=== PATIENT | male | born 1985 | race Caucasian/White ===

== ENCOUNTER 2023-06-20 01:12 | Emergency (ER) | payer OTHER, SELFPAY ==
[2023-06-20 01:21] VITALS: BP 122/97; PULSE 89; RESP 18; TEMP 36.7; O2SAT 99; BMI 22.7
--- NOTE | 2023-06-20 01:26 | ED_ITS ---
HPI - General Adult General Time Seen by Provider: 01:26 Date Seen: 06/20/23 Chief complaint: Skin/Abscess/Foreign Body Stated complaint: glass cuts on torso Time Seen by Provider: 06/20/23 01:15 Source: patient and RN notes reviewed Mode of arrival: ambulatory Limitations: no limitations History of Present Illness HPI narrative: This 37-year-old male is coming in with concern of cuts from glass. He was moving a piece of glass, it shattered, there was really no indication for this. This piece of glass reportedly went all over the room when it shattered. He sustained a cut just below his right ear, superficial 1 on his neck multiple superficial ones on his arms, 1 on the dorsum of his right hand that might be a bit deeper. They have all stopped bleeding. He has no idea when his last tetanus was. We did look this up in the last listed tetanus is 10/07/1998. He does agree to have his tetanus updated. He did fine 1 piece of glass in his mouth. They are wondering about having a note to be off work for the next couple of days for him. Related Data Home Medications Medication Instructions Recorded Confirmed No Known Home Medications 06/20/23 06/20/23 Allergies Allergy/AdvReac Type Severity Reaction Status Date / Time No Known Drug Allergies Allergy Verified 06/20/23 01:24 Review of Systems Narrative: As per HPI. PFSH PFS Social History Smoking Status: Never smoker How often do you have a drink containing alcohol: never AUDIT-C Alcohol total score: 0 Non-prescribed substance use: denies use Exam Const: Vital Signs, click to edit/add: Vital Signs - 24 hr 06/20/23 01:21 Temperature 98.1 F Pulse Rate [Pulse Oximeter] 89 Respiratory Rate 18 Blood Pressure [Ri ght Upper Arm] 122/97 H Pulse Oximetry 99 Oxygen Delivery Me thod Room Air This 37-year-old male is alert, interactive, ambulatory into the ED of his own accord. His face is atraumatic. Oropharynx with normal mucosa, no traumatic change, see no cuts or wounds, no bleeding. He has a very minute superficial area on the anterior of his neck where he looks like a piece of glass scratched him. He has multiple scratch lorenzo on his left arm. He has a about 4-5 mm cut on the dorsum in the center of his right hand. Wound edges are a bit gaping. The wood below his left ear is about 5 mm, again wound edges open up and it is just into the subcutaneous tissue, starts bleeding again. None of the other areas are deep or actively bleeding. I feel no residual glass anywhere. Documenting provider has reviewed patient's vital signs: yes Course Course ED Course: Patient will be getting his tetanus updated. We have discussed closing the 2 wounds, the 1 on the dorsum of his right hand and the 1 below his left ear, he consents. Procedure note: Standard sterile technique was observed, simple suture tray use. Both wounds were cleaned with wound cleanser. The wounds were each closed with 2 simple interrupted sutures using 4 0 Ethilon. Patient did feel little bit woozy, his head was laid back flat, did fine after that. Hemostasis was observed, no significant bleeding. Patient will be given a note to be off today as he would be at work in 2 hours which is really not reasonable. Vital Signs Vital signs: Initial Vital Signs Temperature 98.1 F 06/20/23 01:21 Temperature Source Temporal Artery Scan 06/20/23 01:21 Pulse Rate 89 06/20/23 01:21 Respiratory Rate 18 06/20/23 01:21 Blood Pressure 122/97 H 06/20/23 01:21 Blood Pressure Mean 105 06/20/23 01:21 Blood Pressure Position Sitting 06/20/23 01:21 Pulse Oximetry 99 06/20/23 01:21 Oxygen Delivery Method Room Air 06/20/23 01:21 Vital Signs Temperature 98.1 F 06/20/23 01:21 Pulse Rate 89 06/20/23 01:21 Respiratory Rate 18 06/20/23 01:21 Blood Pressure 122/97 H 06/20/23 01:21 Pulse Oximetry 99 06/20/23 01:21 Oxygen Delivery Method Room Air 06/20/23 01:21 Temperature 98.1 F 06/20/23 01:21 Pulse Rate 89 06/20/23 01:21 Respiratory Rate 18 06/20/23 01:21 Blood Pressure 122/97 H 06/20/23 01:21 Pulse Oximetry 99 06/20/23 01:21 Oxygen Delivery Method Room Air 06/20/23 01:21 Medications Administered Medications: Discontinued Medications Generic Name Dose Route Start Last Admin Trade Name Freq PRN Reason Stop Dose Admin Diphtheria/Tetanus/Acell Pertussis 0.5 ml 06/20/23 01:33 06/20/23 01:50 Tetanus/Diphth/Pertussis 0.5 Ml Syringe IM 06/20/23 01:34 0.5 ml .ONCE ONE Administration Lidocaine HCl 6 ml 06/20/23 01:33 06/20/23 01:35 Lidocaine Hcl 2 % Multidose 20 Ml Vial INJECTION 06/20/23 01:34 6 ml ONCE ONE Administration Discharge Plan Discharge Clinical Impression: Laceration of hand Qualifiers: Encounter type: initial encounter Foreign body presence: without foreign body Laterality: right Qualified Code(s): S61.411A - Laceration without foreign body of right hand, initial encounter Laceration of neck Qualifiers: Encounter type: initial encounter Qualified Code(s): S11.91XA - Laceration without foreign body of unspecified part of neck, initial encounter Patient Disposition: Home, Self-Care Condition: Stable Instructions: Care For Your Stitches (ED), Laceration (ED) Additional Instructions: May shower and wash hands as you normally would. Otherwise, try to keep these wounds clean and dry. Use bandages in bacitracin. Need to have the wounds assessed in about 1 weeks time for suture removal, make a clinic appointment for this. If there is concern for infection, follow handout, please seek re- evaluation. Activity Level: Activity as Tolerated Prescriptions: No Action No Known Home Medications Stand Alone Forms: MyHealth Info Instructions
[2023-06-20] MEDS: lidocaine HCL 2 % MULTIDOSE 20 ML VIAL 6 ML INJECTION (01:35)
[2023-06-20] MEDS: TETANUS/DIPHTH/PERTUSSIS 0.5 ML SYRINGE IM (01:50)
== END 2023-06-20 02:12 | disposition home or self-care (01) ==
LOC: ED 02:11
PROVIDERS: Emergency Provider Family Medicine
DX: S61.411A Laceration without foreign body of right hand, initial encounter (principal); W25.XXXA Contact with sharp glass, initial encounter; Z23 Encounter for immunization
CPT/HCPCS: 12001; 90471; 90715; 99283